=== PATIENT | male | born 1955 | race Hispanic/Latino ===

== ENCOUNTER 2018-04-06 23:15 | Emergency (ER) | payer SELFPAY ==
[2018-04-06 23:24] VITALS: RESP 18; TEMP 98.4
[2018-04-06 23:25] VITALS: BMI 27.1
--- NOTE | 2018-04-06 23:42 | ED PDOC ---
Arrival/HPI - General Chief Complaint: Abdominal Pain Time Seen by Provider: 04/06/18 23:33 Historian: Patient - History of Present Illness Narrative History of Present Illness (Text): 04/06/18 23:38 62 year old male, with no significant past medical history, who presents to the Emergency department complaining of abdominal pain x 2 weeks. Patient notes associated vomiting. Patient states he saw his surgeon Dr. Martinez last week. Patient has visited the Emergency department previously for these symptoms, where an US was performed. Patient denies any fever, chills, chest pain, shortness of breath, diarrhea, urinary symptoms, back pain, neck pain, headache, dizziness, or any other complaints. Time/Duration: < month (2 weeks) Symptom Onset: Gradual Symptom Course: Unchanged Activities at Onset: Light Context: Home Past Medical History - Provider Review Nursing Documentation Reviewed: Yes - Gastrointestinal Other/Comment: umbilical hernia - Psychiatric Hx Substance Use: No - Surgical History Other/Comment: Rt shoulder sx - Anesthesia Hx Anesthesia: Yes Family/Social History - Physician Review Nursing Documentation Reviewed: Yes Family/Social History: Unknown Family HX Smoking Status: Former Smoker Hx Alcohol Use: Yes Frequency of alcohol use: Socially Hx Substance Use: No Allergies/Home Meds Allergies/Adverse Reactions: Allergies No Known Allergies Allergy (Verified 04/06/18 23:25) Review of Systems - Physician Review All systems were reviewed & negative as marked: Yes - Review of Systems Constitutional: Normal Eyes: Normal ENT: Normal Respiratory: Normal. absent: SOB, Cough Cardiovascular: Normal. absent: Chest Pain Gastrointestinal: Abdominal Pain, Vomiting. absent: Diarrhea Genitourinary Male: Normal. absent: Dysuria, Frequency, Hematuria Musculoskeletal: Normal. absent: Back Pain, Neck Pain Skin: Normal. absent: Rash Neurological: Normal. absent: Headache, Dizziness Endocrine: Normal Hemo/Lymphatic: Normal Psychiatric: Normal Physical Exam - Physical Exam Narrative Physical Exam (Text): 04/06/18 23:43 Gen: VS reviewed, alert, well developed, well nourished, nontoxic, mild distress. ENT: normal pharynx. Eye: EOMI, PERRL. Neck: no JVD, supple, no adenopathy. CV: regular rate, regular rhythm, no rubs, no murmur, no gallops, S1, S2, pulses equal and strong. Pulm: no distress, clear to auscultation, no wheeze, no rhonchi, breath sounds equal, no rales. Abd: large tender non-reducible umbilical hernia, surrounding abdominal tenderness, no guarding, no rebound, no rigidity, normal bowel sounds. Ext: no edema. Skin: good color, no rash, no cyanosis. Psych: responds appropriately to questions, normal affect. Neuro: oriented x 3, CN2-12 intact grossly, motor intact, sensation intact. Vital Signs Reviewed: Yes Vital Signs Temp Pulse Resp BP Pulse Ox 04/06/18 23:24 98.4 F 95 H 18 140/92 H 97 Temperature: Afebrile Blood Pressure: Hypertensive Pulse: Regular Respiratory Rate: Normal Appearance: Positive for: Well-Appearing, Non-Toxic, Comfortable Pain Distress: None Mental Status: Positive for: Alert and Oriented X 3 Medical Decision Making ED Course and Treatment: 04/06/18 23:44 Impression: 62 year old male presents to the Emergency department complaining of abdominal pain x 2 weeks. Plan: -- Labs -- Sodium Chloride -- Xray abdomen -- Reassess and disposition Progress Notes: There is a concern for strangled umbilical hernia. vice president planning paged immediately upon seeing pt. 04/07/18 00:25 president [employer] evaluated pt and reduced umbilical hernia. States if labs and radiology are normal, pt can be d/c. 04/07/18 00:50 xrays reviewed with the surgical corsetier, states that the patient can be discharged home. 0052: i went to the bedside to re-examine the patient. patient states that his pain is still there but "50 % better". on palpation his abdomen is soft, there previously seen hernia has been reduced, there is a residual palpable fat within the protruding skin, the palpated area is soft and nontender, there is still some mild tenderness around the hernia but no guarding, no rebound, no rigidity. I explained to the patient that I am still concerned for a intestinal obstruction and that I would like proceed with a CT. patient states he does not want to get CT and that he will just follow up with his surgeon. Patient understands the risks of leaving without full evaluation. Patient states he will sign out AMA. In the interim, I will PO challenge. The patient refuses further medical evaluation and testing and wishes to leave the Emergency Department against my medical advice. Patient was told that this testing is necessary and a full explanation of the reasons why was given, and understood by patient. The risks of leaving were explained and include worsening of condition, and permanent disability and from undiagnosed or untreated conditions. The patient accepts these risks, and is in my judgment is competent and capable of understanding the clinical situation and my explanation of the risks of leaving. Patient was given the opportunity to ask questions and change mind. The patient was instructed regarding the best care for the present symptoms, and to follow up with Dr. Austin, general surgery, as soon as possible, or return to the Emergency Department at any time for continuing care. 04/07/18 01:04 on re-eval just after patient signing ama form, patient tolerated po challenge and states there was no exacerbation of his pain. - RAD Interpretation Narrative RAD Interpretations (Text): 04/07/18 01:00 xr abdomen my read: there are dialted loops of small bowel seen within the vi sualized abdominal views, there are no air fluid levels. Acquisitions Librarian: ED Physician - Medication Orders Current Medication Orders: Sodium Chloride (Sodium Chloride 0.9%) 1,000 mls @ 150 mls/hr IV .Q6H40M [facility] - Scribe Statement The provider has reviewed the documentation as recorded by the Scribe Toya Casas All medical record entries made by the Scribe were at my direction and personally dictated by me. I have reviewed the chart and agree that the record accurately reflects my personal performance of the history, physical exam, medical decision making, and the department course for this patient. I have also personally directed, reviewed, and agree with the discharge instructions and disposition. Disposition/Present on Arrival - Present on Arrival Any Indicators Present on Arrival: No History of DVT/PE: No History of Uncontrolled Diabetes: No Urinary Catheter: No History of Decub. Ulcer: No History Surgical Site Infection Following: None - Disposition Have Diagnosis and Disposition been Completed?: Yes Diagnosis: Umbilical hernia Disposition: AGAINST MEDICAL ADVICE Disposition Time: 01:04 Patient Plan: Discharge Condition: STABLE Discharge Instructions (ExitCare): Umbilical Hernia, Adult Additional Instructions: Follow up with your surgeon as soon as possible. Return for any new or worsening symptoms especially fever greater than 100.4, worsening pain, vomiting. JOSE MARTIN PRATT, thank you for letting us take care of you today. Your provider was Dr. Evangelist Caba and you were treated for umbilical hernia. The emergency medical care you received today was directed at your acute symptoms. If you were prescribed any medication, please fill it and take as directed. It may take several days for your symptoms to resolve. Return to the Emergency Department if your symptoms worsen, do not improve, or if you have any other problems. Please contact your doctor or call one of the physicians/clinics you have been referred to that are listed on the Patient Visit Information form that is included in your discharge packet. Bring any paperwork you were given at discharge with you along with any medications you are taking to your follow up visit. Our treatment cannot replace ongoing medical care by a primary care provider outside of the emergency department. Thank you for allowing the [facility] team to be part of your care today. If you had an X-Ray or CT scan: A Radiologist will review the ED reading if any change in treatment is needed we will contact you. If you had a blood, urine, or wound culture: It will take several days for the results, if any change in treatment is needed we will contact you. If you had an STI test: It will take 48 hours for the results. Please call after 1 week if you have not heard back. Forms: [employer] (Burmese)
[2018-04-06] MEDS ORDERED: Sodium Chloride 0.9% 1,000 ML IV SCH (23:45)
[2018-04-06 23:56] LABS: BASO # 0.02 K/mm3 (0.0-2.0); BASO % 0.2 % (0.0-3.0); EOS # 0.2 (0.0-0.7); EOS % 1.8 % (1.5-5.0); GRAN # 8.45 (1.4-6.5); GRAN % 79.6 % (50.0-68.0); HEMOGLOBIN 15.4 g/dL (14.0-18.0); LYMPH # 1.2 (1.2-3.4); MEAN CELL VOLUME 88.8 fl (80.0-105.0); MEAN CORPUSCULAR HEMOGLOBIN 29.8 pg (25.0-35.0); MEAN CORPUSCULAR HGB CONC 33.6 g/dl (31.0-37.0); MEAN PLATELET VOLUME 9.3 fl (7.0-11.0); MONO # 0.8 (0.1-0.6); MONO % 7.4 % (1.0-6.0); RBC 5.16 10^6/uL (3.5-6.1); RED CELL DISTRIBUTION WIDTH 13.2 % (11.5-14.5); WHITE BLOOD COUNT 10.6 10^3/uL (4.5-11.0)
[2018-04-07 00:14] LABS: ALB/GLOB RATIO 1.3 (1.1-1.8); ALBUMIN 4.2 g/dL (3.0-4.8); ALT/SGPT 20 U/L (7-56); AST/SGOT 29 U/L (17-59); BLOOD UREA NITROGEN 9 mg/dL (7-21); CALCIUM 9.7 mg/dL (8.4-10.5); GFR NON-AFRICAN AMERICAN > 60
--- NOTE | 2018-04-07 00:43 | CP.PCM.CON ---
History of Present Illness - History of Present Illness History of Present Illness: Surgery: Dr. Martinez Patient is a 62 y/o male known history of an umbilical hernia seen in office earlier this months presents with pain to the umbilicus that started this morning. He states the pain is mainly located in the umbilicus area at the site of hernia but makes his stomach "not feel right". He denies f/c, he reports 1 small episodes of emesis he attributes to the increase in pain this afternoon. He tolerated his diet throughout the day and last meal was around 1 pm. He is normally able to self reduce his hernia and chronically has pain at the site but as of around 2-3pm this afternoon he was unable to and pain increased. He is unsure exactly of last BM or flatus but reports being earlier today. PMH: multiple work related injuries PSH: R shoulder Social: former tobacco use, social ETOH use Review of Systems - Constitutional Constitutional: absent: Anorexia, Chills, Fever - EENT Eyes: absent: Blurred Vision, Change in Vision Ears: absent: Disequilibrium, Dizziness Nose/Mouth/Throat: absent: Nasal Congestion, Hoarsness - Cardiovascular Cardiovascular: absent: Chest Pain, Edema - Respiratory Respiratory: absent: Cough, Wheezing - Gastrointestinal Gastrointestinal: Abdominal Pain, Nausea. absent: Bloating, Hematemesis, Hematochezia, Vomiting - Genitourinary Genitourinary: absent: Hematuria, Pyuria - Neurological Neurological: absent: Disequilibrium, Dizziness - Hematologic/Lymphatic Hematologic: absent: Easy Bleeding, Easy Bruising Past Patient History - Past Social History Smoking Status: Former Smoker - GASTROINTESTINAL Other/Comment: umbilical hernia - PSYCHIATRIC Hx Substance Use: No - SURGICAL HISTORY Other/Comment: Rt shoulder sx - ANESTHESIA Hx Anesthesia: Yes Meds Allergies/Adverse Reactions: Allergies Allergy/AdvReac Type Severity Reaction Status Date / Time No Known Allergies Allergy Verified 04/06/18 23:25 - Medications Medications: Current Medications Sodium Chloride (Sodium Chloride 0.9%) 1,000 mls @ 150 mls/hr IV .Q6H40M [facility] Last Admin: 04/06/18 23:54 Dose: 150 mls/hr Physical Exam - Constitutional Appears: Non-toxic, No Acute Distress - Head Exam Head Exam: ATRAUMATIC, NORMOCEPHALIC - Eye Exam Eye Exam: EOMI, Normal appearance - ENT Exam ENT Exam: Mucous Membranes Moist - Respiratory Exam Respiratory Exam: NORMAL BREATHING PATTERN. absent: Respiratory Distress - Cardiovascular Exam Cardiovascular Exam: REGULAR RHYTHM. absent: Tachycardia - GI/Abdominal Exam GI & Abdominal Exam: Hernia, Soft, Tenderness (mild umbilical tenderness, moderate umblical hernia with stretched appearing skin from chonicity ). absent: Distended, Guarding, Rebound, Rigid - Extremities Exam Extremities exam: Negative for: calf tenderness, normal inspection - Neurological Exam Neurological exam: Alert, Oriented x3 - Psychiatric Exam Psychiatric exam: Normal Affect, Normal Mood Results - Vital Signs Recent Vital Signs: Last Vital Signs Temp 98.4 F 04/06/18 23:24 Pulse 95 H 04/06/18 23:24 Resp 18 04/06/18 23:24 BP 140/92 H 04/06/18 23:24 Pulse Ox 97 04/06/18 23:24 - Labs Result Diagrams: 04/06/18 23:45 04/06/18 23:45 Labs: Laboratory Results - last 24 hr 04/06/18 04/06/18 23:45 23:45 WBC 10.6 RBC 5.16 Hgb 15.4 Hct 45.8 MCV 88.8 MCH 29.8 MCHC 33.6 RDW 13.2 Plt Count 342 MPV 9.3 Gran % 79.6 H Lymph % (Auto) 11.0 L [place] % (Auto) 7.4 H Eos % (Auto) 1.8 Baso % (Auto) 0.2 Gran # 8.45 H Lymph # (Auto) 1.2 [place] # (Auto) 0.8 H Eos # (Auto) 0.2 Baso # (Auto) 0.02 Sodium 140 Potassium 3.9 Chloride 103 Carbon Dioxide 26 Anion Gap 14 BUN 9 Creatinine 0.9 Est GFR ( Amer) > 60 Est GFR (Non-Af Amer) > 60 Random Glucose 119 H Calcium 9.7 Total Bilirubin 0.9 AST 29 ALT 20 Alkaline Phosphatase 65 Total Protein 7.5 Albumin 4.2 Globulin 3.3 Albumin/Globulin Ratio 1.3 - Impressions Impression: Abd film: small focal area of dilated bowel loops, however no air fluid levels, no pneumatosis. Assessment & Plan - Assessment and Plan (Free Text) Assessment: 62 y/o male w/ umbilical hernia Plan: -hernia reducible bedside, patient tolerated well and felt immediate relief post reduction -imaging reviewed. 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 Martinez in office next week to further discuss surgical intervention -d/w Dr. Martinez and ER doctor patient plan of care [facility] PGY4 - Date & Time Date: 04/07/18 Time: 11:45
[2018-04-07 01:54] VITALS: BP 134/89; PULSE 94; O2SAT 100
--- NOTE | 2018-04-07 08:36 | RAD ---
Date of service: 04/07/2018 HISTORY: obstruction COMPARISON: None available. FINDINGS: BOWEL: Mildly dilated loops of small bowel are seen in the left upper quadrant. Findings could represent partial obstruction. There is a moderate amount of stool in the colon BONES: Normal. OTHER FINDINGS: None. IMPRESSION: Mildly dilated loops of small bowel are seen in the left upper quadrant. Findings could represent partial obstruction. There is a moderate amount of stool in the colon
== END 2018-04-07 01:00 | disposition left against medical advice (07) ==
LOC: ED 23:15
DX: K42.9 Umbilical hernia without obstruction or gangrene (principal); Z87.891 Personal history of nicotine dependence
CPT/HCPCS: 74018; 80053; 85025; 86850; 86870; 86880; 86900; 99284; J7030